=== PATIENT | male | born 1950 | race Asian ===

== ENCOUNTER 2017-07-30 14:21 | Inpatient (IN) | payer MEDICARE, MEDICAID ==
--- NOTE | 2017-07-30 15:20 | ED Physician Chart ---
ED Chief Complaint/HPI - Patient Information Date Seen:: 07/30/17 Time Seen:: 15:10 Chief Complaint:: dizziness History of Present Illness:: Patient had dizziness for 1 week. No further history is available. Allergies:: Allergies Allergy/AdvReac Type Severity Reaction Status Date / Time No Known Allergies Allergy Verified 07/30/17 14:44 Vitals:: Vital Signs - 8 hr 07/30/17 14:57 Temp 98.3 F HR 80 RR 16 BP 158/100 O2 Sat % 94 Historian:: EMS Review:: Nurse's Note Reviewed, Transfer documents Reviewed ED Past Medical History - Past Medical History Past Medical History: HTN, DM, Other (abdominal wall cellulitis; right hemiplegia) Family History: Other (not available) Social History: Care Facility, Other (unavailable) Surgical History: other (available) Psychiatricy History: Other (unavailable) Medication: Reviewed Family Medical History - Family Member Mother History Unknown: Yes Ethnicity: Non- Living Status: Unknown Hx Family Cancer: No Hx Family Coronary Artery Disease: (UNKNOWN) Hx Family Congestive Heart Failure: (UNKNOWN) Hx Family Hypertension: No Hx Family Stroke: No Hx Family Diabetes: (UNKNOWN) Hx Family Seizures: No Hx Family Dementia: (UNKNOWN) Hx Family AIDS: No Hx Family HIV: No Hx Family COPD: (UNKNOWN) Hx Family Hepatitis: No Hx Family Tuberculosis: (UNKNOWN) Daughter History Unknown: Yes Ethnicity: Non- Living Status: Unknown Hx Family Cancer: No Hx Family Coronary Artery Disease: No Hx Family Congestive Heart Failure: No Hx Family Hypertension: (UNKNOWN) Hx Family Stroke: (UNKNOWN) Hx Family Diabetes: No Hx Family Seizures: No Hx Family Dementia: No Hx Family AIDS: No Hx Family HIV: No Hx Family COPD: No Hx Family Hepatitis: (UNKNOWN) Hx Family Psychiatric Problems: No Hx Family Tuberculosis: (UNKNOWN) ED Physical Exam - Physical Examination General/Constitutional: No distress Other Gen/Cons comments:: Mildly chronically ill-appearing Head: Atraumatic Eyes: Lids, conjuctiva normal, PERRL Skin: No rash ENMT: External ears, nose nl, Nasal exam nl Other ENMT comments:: No upper teeth present Neck: No nuchal rigidity Respiratory: Nl effort/Exclusion, Clear to Auscultation Cardio Vascular: RRR GI: No tenderness/rebounding/guarding, No organomegaly, No hernia, Normal BS's, Nondistended Extremities: Normal digits & nails Other Neuro/Psych comments:: Right arm paralysis ED Labs/Radiology/EKG Results - Lab Results Results: Laboratory Results - last 24 hr 07/30/17 07/30/17 07/30/17 15:44 15:44 15:44 WBC 6.7 RBC 4.81 Hgb 14.4 Hct 43.9 MCV 91.3 MCH 30.0 MCHC Differential 32.8 RDW 13.8 Plt Count 291 MPV 7.7 Neutrophils % 63.3 Lymphocytes % 29.1 Monocytes % 5.2 Eosinophils % 2.0 Basophils % 0.4 Sodium 140 Potassium 4.0 Chloride 107 Carbon Dioxide 25.4 Anion Gap 11.6 BUN 12 Creatinine 0.9 Est GFR ( Amer) > 60.0 Est GFR (Non-Af Amer) > 60.0 BUN/Creatinine Ratio 13.3 Glucose 116 H Calcium 9.8 Troponin I 0.01 - Radiology Results Results: Chest x-ray showed calcification of the aortic arch and hiatal hernia. CT head showed atrophy and old left frontoparietal infarct - EKG Interpretations Rate & Rhythm: normal sinus rhythm with a rate of 75 [place]: normal Comments:: Q waves and slight ST elevation in leads III and aVF ED Septic Shock - . 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
[2017-07-30 15:50] LABS: % BASOPHILS 0.4 % (0.0-2.0); % LYMPHOCYTES 29.1 % (20.0-50.0); % MONOCYTES 5.2 % (2.0-10.0); % NEUTROPHILS 63.3 % (40.0-80.0); EOSINOPHILE ABSOLUTE 0.1 Th/cmm (0.1-0.4); HEMATOCRIT 43.9 % (41.0-60); HEMOGLOBIN 14.4 gm/dL (12-16); LYMPHOCYTE ABSOLUTE 1.9 Th/cmm (1.5-3.0); MEAN CELL VOLUME 91.3 fl (80-99); MEAN CORPUSCULAR HGB CONC 32.8 pg (28.0-36.0); MEAN PLATELET VOLUME 7.7 fl; MONOCYTE ABSOLUTE 0.3 Th/cmm (0.3-1.0); NEUTROPHILE ABSOLUTE 4.4 Th/cmm (1.8-8.0); PLATELET COUNT 291 Th/cmm (150-400); RED BLOOD COUNT 4.81 Mil/cmm (3.80-5.80); RED CELL DISTRIBUTION WIDTH 13.8 % (11.5-20.0); WHITE BLOOD COUNT 6.7 Th/cmm (4.8-10.8)
[2017-07-30 16:10] LABS: ANION GAP 11.6 (7.0-16.0); BUN - UREA NITROGEN 12 mg/dL (7-25); CALCIUM SERUM 9.8 mg/dL (8.6-10.3); CARBON DIOXIDE 25.4 mEq/L (21.0-31.0); CHLORIDE 107 mEq/L (98-107); CREATININE - SERUM 0.9 mg/dL (0.7-1.3); GFR AFRICAN-AMERICAN > 60.0 ml/min (>90); GFR NON AFRICAN-AMERICAN > 60.0 ml/min; GLUCOSE 116 mg/dL (70-105); SODIUM SERUM 140 mEq/L (136-145)
--- NOTE | 2017-07-31 08:18 | Diagnostic Imaging Report ---
CT scan of the brain without intravenous contrast HISTORY: Stroke, CVA Total DLP equals 832 CTDI equals 44.8 Axial sections were obtained from the base of the skull to the vertex. There is prominence/enlargement of the ventricular system size. Associated enlargement of cerebral sulci and subarachnoid cisterns. Findings are consistent with changes of generalized cerebral atrophy. No acute parenchymal abnormalities. No acute cerebral hemorrhage. Hypodensity is seen within the supratentorial white matter regions without mass effect. The findings may be associated with chronic small vessel ischemic disease. Somewhat more focal hypodensity noted in the left frontal parietal region with volume loss. Changes consistent with an old infarct. No extra-axial masses or abnormal fluid collections. Severe atherosclerotic vascular calcification noted in the region of the vertebral and basilar arteries at the base of the skull. IMPRESSION: 1. No acute abnormalities 2. Cerebral atrophy 3. Supratentorial white matter changes that may reflect chronic small vessel ischemic disease 4. Severe atherosclerotic vascular changes 5. Findings consistent with an old left frontoparietal infarct.
--- NOTE | 2017-07-31 08:22 | Diagnostic Imaging Report ---
CHEST X-RAY: AP view INDICATION: Pneumonia COMPARISON: 10/09/2015 FINDINGS: There is elevation of the right hemidiaphragm. No focal consolidation or effusions. Left basal subsegmental atelectatic changes are noted. Heart size borderline prominent. Atherosclerosis is noted. The osseous structures are intact. There is a 3 mm calcified granuloma the right midlung. IMPRESSION: Left basal subsegmental atelectasis versus scarring. No focal airspace consolidation identified. Atherosclerotic vascular disease.
[2017-07-31] MEDS ORDERED: Hydrocodone/APAP 5mg/325mg Tab PO PRN (11:57)
[2017-07-31] MEDS ORDERED: [UNRECOGNIZED DRUG - OTHER] PO SCH (12:00)
--- NOTE | 2017-07-31 13:29 | History & Physical ---
ADMIT DATE: 07/31/2017 PATIENT IDENTIFICATION: A 66-year-old male. CHIEF COMPLAINT: Dizziness and passing out. HISTORY OF PRESENT ILLNESS: A 66-year-old Spanish Portuguese male with history of CVA with right-sided weakness, diabetes mellitus, expressive aphasia, hypertension, hyperlipidemia, BPH, and DJD has been followed by myself at custodial, noted to have a lytic lesions on x-ray of his femur where the patient was seen by oncologist and seeing oncologist as an outpatient, noted by nursing staff that the patient was having dizziness and feeling of passing out. The patient's symptoms were continued to persist. The patient was advised to go to Emergency Room. The patient was seen by Emergency Room M.D. and subsequently admitted to the hospital for further treatment. PAST MEDICAL HISTORY: Remarkable for: 1. Diabetes mellitus. 2. Hypertension. 3. CVA involving the right side. 4. Degenerative joint disease. 5. Benign prostatic hypertrophy. 6. Gastroesophageal reflux disease. MEDICATIONS AT HOME: [facility] has been reviewed and reconciled appropriately. ALLERGIES: The patient is not allergic to any medication. SOCIAL HISTORY: The patient lives in a custodial. No smoking, alcohol or drug use. FAMILY MEDICAL HISTORY: Unavailable. REVIEW OF SYSTEMS: Unable to obtain meaningful history due to expressive aphasia. PHYSICAL EXAMINATION: GENERAL: The patient is alert, awake, lying in the bed without any acute distress. VITAL SIGNS: Temperature 97.7, pulse 80, respiratory rate is 18, blood pressure 168/90. HEENT: Normocephalic, atraumatic. Extraocular muscles are intact. Tongue was pink and coated. Poor dentition noted. NECK: Supple, no JVD, no hepatojugular reflex. No lymphadenopathy, thyromegaly or carotid bruit. HEART: Both heart sounds are regular. CHEST: Lung equal in expansion with no expiratory wheezing. ABDOMEN: Soft. No guarding, no rigidity. Bowel sounds were no palpable mass. EXTREMITIES: No edema, no cyanosis. NEUROLOGIC: Remarkable for right-sided weakness noted with spasticity. AVAILABLE DIAGNOSTIC DATA: Performed in the Emergency Room, which include white count of 6.7, hemoglobin 14.4, platelet count 291. Electrolytes are within normal limit. Glucose of 116. CT scan of the head was done which is negative for any new CVA, cerebral atrophy noted. There is severe atherosclerotic vascular changes noted. The patient does have an old left frontoparietal infarct. EKG, no ST-T wave changes representing acute ischemia. CLINICAL IMPRESSION: 1. Recurrent dizziness and lightheadedness going on for 1 week. The patient has previous history of CVA along with a history of diabetes and hypertension, needs to rule out for new embolic CVA, cannot rule out possibilities of other intracranial space occupying lesion. 2. Diabetes. 3. Hypertension. 4. Hyperlipidemia. 5. CVA with right-sided weakness. 6. Degenerative joint disease. 7. High risk for fall. 8. Dysphagia. 9. Benign prostatic hypertrophy. PLAN: 1. Admit this patient to telemetry unit. 2. MRI of the brain. 3. 2D echocardiogram. 4. Neurology consultation. 5. Diabetes management. 6. Appropriate home medicine reconciliation. 7. Hold the patient's Neurontin for now. 8. Pain management. 9. Diabetes management. 10. Follow science consultant recommendation. 11. Neuro check. 12. Care plan reviewed and discussed with staff. JOB# [id number]
[2017-07-31] MEDS ORDERED: LACTULOSE 10 GM PO SCH (17:00)
[2017-07-31] MEDS ORDERED: Non-Formulary Item 1 EA (Docusate Sodium 100 MG) PO SCH (17:00)
[2017-07-31] MEDS: Lactulose 10 Gm/15 mL 30mL UDC PO SCH (17:47)
[2017-08-01] MEDS ORDERED: OMEPRAZOLE PO SCH (09:00)
--- NOTE | 2017-08-01 09:16 | General Progress Note ---
Subjective - Review of Systems Subjective: Patient is seen and examined. Patient's daughter at bedside. Patient's denies chest pain, shortness, vomiting, headache.Patient is scheduled to have MRI of brain today. Objective - Results Result Diagrams: 07/30/17 15:44 07/30/17 15:44 Recent Labs: Laboratory Last Values WBC 6.7 Th/cmm (4.8-10.8) 07/30/17 15:44 RBC 4.81 Mil/cmm (3.80-5.80) 07/30/17 15:44 Hgb 14.4 gm/dL (12-16) 07/30/17 15:44 Hct 43.9 % (41.0-60) 07/30/17 15:44 MCV 91.3 fl (80-99) 07/30/17 15:44 MCH 30.0 pg (27.0-31.0) 07/30/17 15:44 MCHC Differential 32.8 pg (28.0-36.0) 07/30/17 15:44 RDW 13.8 % (11.5-20.0) 07/30/17 15:44 Plt Count 291 Th/cmm (150-400) 07/30/17 15:44 MPV 7.7 fl 07/30/17 15:44 Neutrophils % 63.3 % (40.0-80.0) 07/30/17 15:44 Lymphocytes % 29.1 % (20.0-50.0) 07/30/17 15:44 Monocytes % 5.2 % (2.0-10.0) 07/30/17 15:44 Eosinophils % 2.0 % (0.0-5.0) 07/30/17 15:44 Basophils % 0.4 % (0.0-2.0) 07/30/17 15:44 Sodium 140 mEq/L (136-145) 07/30/17 15:44 Potassium 4.0 mEq/L (3.5-5.1) 07/30/17 15:44 Chloride 107 mEq/L (98-107) 07/30/17 15:44 Carbon Dioxide 25.4 mEq/L (21.0-31.0) 07/30/17 15:44 Anion Gap 11.6 (7.0-16.0) 07/30/17 15:44 BUN 12 mg/dL (7-25) 07/30/17 15:44 Creatinine 0.9 mg/dL (0.7-1.3) 07/30/17 15:44 Est GFR ( Amer) > 60.0 ml/min (>90) 07/30/17 15:44 Est GFR (Non-Af Amer) > 60.0 ml/min 07/30/17 15:44 BUN/Creatinine Ratio 13.3 07/30/17 15:44 Glucose 116 mg/dL (70-105) H 07/30/17 15:44 Calcium 9.8 mg/dL (8.6-10.3) 07/30/17 15:44 Troponin I 0.01 ng/mL (0.01-0.05) 07/30/17 15:44 - Physical Exam Vitals and I&O: Vital Signs Temp 97.3 F 08/01/17 04:00 Pulse 90 08/01/17 04:00 Resp 18 08/01/17 04:00 BP 151/94 08/01/17 04:00 Pulse Ox 95 08/01/17 04:00 Intake & Output 07/31/17 08/01/17 08/01/17 18:59 06:59 18:59 Intake Total 200 Balance 200 Weight (lbs) 63.503 kg 73.028 kg Intake: Oral 200 Other: # Voids 3 # Bowel Movements 0 Active Medications: Current Medications Acetaminophen/Hydrocodone Bitart ([place] 5mg/325mg) 1 tab PO Q6H PRN PRN Reason: Pain Stop: 09/29/17 11:56 Atorvastatin Calcium (Lipitor) 10 mg PO DAILY [facility] PRN Reason: Protocol Stop: 09/30/17 08:59 Bisacodyl (Dulcolax 10 Mg Supp) 10 mg RC DAILY PRN PRN Reason: Constipation Stop: 09/29/17 11:56 Docusate Sodium (Colace) 100 mg PO BID [facility] Stop: 09/29/17 16:59 Last Admin: 07/31/17 17:48 Dose: 100 mg Labetalol HCl (Trandate) 300 mg PO Q12H [facility] Stop: 09/29/17 12:59 Last Admin: 08/01/17 03:55 Dose: Not Given Lactulose (Cephulac) 10 gm PO BID [facility] Stop: 09/29/17 16:59 Last Admin: 07/31/17 17:47 Dose: 10 gm Lisinopril (Zestril) 10 mg PO DAILY [facility] Stop: 09/30/17 08:59 Pantoprazole Sodium (Protonix) 40 mg PO DAILY [facility] Stop: 09/30/17 08:59 Pneumococcal Polyvalent Vaccine (Pneumovax) 0.5 ml IM .ONCE ONE Stop: 08/01/17 17:38 Senna (Senna) 8.6 mg PO BID [facility] Stop: 09/29/17 16:59 Last Admin: 07/31/17 17:48 Dose: 8.6 mg Terazosin HCl (Hytrin) 2 mg PO HS [facility] Stop: 09/29/17 20:59 Last Admin: 07/31/17 21:40 Dose: 2 mg General: Alert, Oriented x3, Cooperative, No acute distress HEENT: Atraumatic, PERRLA, EOMI Neck: Supple, JVD Cardiovascular: Regular rate, Normal S1, Normal S2 Lungs: Clear to auscultation Abdomen: Bowel sounds Extremities: Other (No edema cyanosis, clubbing) Neurological: Other (R sided weakness with expressive aphasia.) - Procedures Procedures: Procedures Procedure Code Date EXCISION OF STOMACH, OPEN APPROACH [id number] 10/09/15 REPAIR STOMACH-BOWEL FISTULA 85156 10/09/15 Assessment/Plan - Problem List Patient Problems: All Active Problems Abdominal pain (Acute) R10.[address] scan (Acute) R93.5 Right leg pain (Acute) M79.604 - Assessment Assessment: persistent dizziness and syncope. CVA with right sided weakness DM II Hypertension. Hyperlipidemia. DJD. Dysphagia. - Plan Plan: MRI of brain. Cardiac monitoring. General nursing care. Diabetes Management. Follow lab. Follow consultants recommendations. Continue current care Discussed with staff.
[2017-08-01] MEDS: Lactulose 10 Gm/15 mL 30mL UDC PO SCH ×2 (09:37→18:54)
[2017-08-01] MEDS: Pantoprazole 40 mg EC Tab PO SCH (09:37)
[2017-08-01] MEDS: Atorvastatin Calcium 10 MG TAB PO SCH (09:37)
[2017-08-01] MEDS ORDERED: VTE Chemical Prophylaxis Screen/Admission MC PRN (14:22)
[2017-08-01] MEDS ORDERED: Pneumococcal Vaccine 0.5 mL Vial IM ONE (17:37)
--- NOTE | 2017-08-01 20:00 | Cardiology ---
07/31/2017 ECHOCARDIOGRAM REPORT M-MODE ECHOCARDIOGRAM: Mitral valve, anterior leaflet of mitral valve shows normal excursion, EF velocity. Posterior leaflet of the mitral valve shows normal excursion. Left ventricular posterior wall shows increased thickness, normal excursion. Interventricular septum shows increased thickness, normal excursion, hypertrophy of the left ventricle, ejection fraction 55%. Left atrium normal. Aortic root shows normal dimension, normal excursion of aortic leaflets. CONCLUSION: Hypertrophy of the left ventricle, ejection fraction 55%. TWO-D ECHO: Long axis view showed normal sized left ventricle with hypertrophy of the left ventricle. Left atrium normal. Aortic root shows normal dimension, normal excursion of aortic leaflets. Short axis view of mitral valve normal. Short axis view of aortic valve normal. Apical four chamber view showed normal sized left ventricle with hypertrophy of the left ventricle. Left atrium normal. Right ventricular cavity and right atrium normal. No pericardial effusion. CONCLUSION: Hypertrophy of the left ventricle, ejection fraction 55%. Doppler study shows trace mitral regurgitation, prominent A wave consistent with poor compliance of left ventricle. [facility]# [id number]
[2017-08-02] MEDS: Pantoprazole 40 mg EC Tab PO SCH (08:26)
[2017-08-02] MEDS: Lactulose 10 Gm/15 mL 30mL UDC PO SCH ×2 (08:27→16:36)
[2017-08-02] MEDS: Atorvastatin Calcium 10 MG TAB PO SCH (08:27)
--- NOTE | 2017-08-02 09:40 | Diagnostic Imaging Report ---
MRI Brain without intravenous Contrast Indication: Syncope Comparison: Head CT performed at [facility] on 07/30/2017 Technique: Multiplanar T1, T2, FLAIR, GRE and diffusion weighted images of the brain were obtained without intravenous contrast.. Findings: Images of the brain obtained without contrast demonstrate no evidence of an acute hemorrhage. Focal area of what appears to be T2 shine through is seen along the right occipital lobe. Diffuse atrophy is noted. Diffuse white matter disease is noted with old periventricular infarcts. Focal infarcts of the right occipital lobe are also noted. The ventricles and basal cisterns are patent. No mass effect or midline shift. The bilateral cerebellopontine angles are patent. The vascular flow voids are preserved. Hemosiderin deposition in the left basal ganglion and bilateral cerebral hemispheres are noted which may be due to old punctate hemorrhages. There is mild mucosal thickening of the paranasal sinus. IMPRESSION: Focal T2 shine through is seen involving the right occipital lobe which is likely due to subacute or chronic infarct in this region. Diffuse white matter disease which is nonspecific and may be due to chronic microvessel ischemia. Old bilateral small periventricular infarcts are also noted. Diffuse atrophy. Few small areas of hemosiderin deposition seen along the left basal ganglia and bilateral cerebellar hemispheres which may have been due to old punctate hemorrhages.
--- NOTE | 2017-08-02 18:05 | General Progress Note ---
Subjective - Review of Systems Subjective: Patient is seen and examined. Patient's daughter at bedside. Patient's denies chest pain, shortness, vomiting, headache. MRI of brain report reviewed. Objective - Results Result Diagrams: 07/30/17 15:44 07/30/17 15:44 Recent Labs: Laboratory Last Values WBC 6.7 Th/cmm (4.8-10.8) 07/30/17 15:44 RBC 4.81 Mil/cmm (3.80-5.80) 07/30/17 15:44 Hgb 14.4 gm/dL (12-16) 07/30/17 15:44 Hct 43.9 % (41.0-60) 07/30/17 15:44 MCV 91.3 fl (80-99) 07/30/17 15:44 MCH 30.0 pg (27.0-31.0) 07/30/17 15:44 MCHC Differential 32.8 pg (28.0-36.0) 07/30/17 15:44 RDW 13.8 % (11.5-20.0) 07/30/17 15:44 Plt Count 291 Th/cmm (150-400) 07/30/17 15:44 MPV 7.7 fl 07/30/17 15:44 Neutrophils % 63.3 % (40.0-80.0) 07/30/17 15:44 Lymphocytes % 29.1 % (20.0-50.0) 07/30/17 15:44 Monocytes % 5.2 % (2.0-10.0) 07/30/17 15:44 Eosinophils % 2.0 % (0.0-5.0) 07/30/17 15:44 Basophils % 0.4 % (0.0-2.0) 07/30/17 15:44 Sodium 140 mEq/L (136-145) 07/30/17 15:44 Potassium 4.0 mEq/L (3.5-5.1) 07/30/17 15:44 Chloride 107 mEq/L (98-107) 07/30/17 15:44 Carbon Dioxide 25.4 mEq/L (21.0-31.0) 07/30/17 15:44 Anion Gap 11.6 (7.0-16.0) 07/30/17 15:44 BUN 12 mg/dL (7-25) 07/30/17 15:44 Creatinine 0.9 mg/dL (0.7-1.3) 07/30/17 15:44 Est GFR ( Amer) > 60.0 ml/min (>90) 07/30/17 15:44 Est GFR (Non-Af Amer) > 60.0 ml/min 07/30/17 15:44 BUN/Creatinine Ratio 13.3 07/30/17 15:44 Glucose 116 mg/dL (70-105) H 07/30/17 15:44 Calcium 9.8 mg/dL (8.6-10.3) 07/30/17 15:44 Troponin I 0.01 ng/mL (0.01-0.05) 07/30/17 15:44 - Physical Exam Vitals and I&O: Vital Signs Temp 98.0 F 08/02/17 15:00 Pulse 78 08/02/17 15:00 Resp 20 08/02/17 15:00 BP 160/94 08/02/17 15:00 Pulse Ox 99 08/02/17 15:00 Intake & Output 08/01/17 08/02/17 08/02/17 18:59 06:59 18:59 Intake Total 250 100 Balance 250 100 Weight (lbs) 73.028 kg 73.028 kg Intake: Oral 250 100 Other: # Voids 1 2 # Bowel Movements 0 0 Active Medications: Current Medications Acetaminophen/Hydrocodone Bitart ([place] 5mg/325mg) 1 tab PO Q6H PRN PRN Reason: Pain Stop: 09/29/17 11:56 Atorvastatin Calcium (Lipitor) 10 mg PO DAILY [facility] PRN Reason: Protocol Stop: 09/30/17 08:59 Last Admin: 08/02/17 08:27 Dose: 10 mg Bisacodyl (Dulcolax 10 Mg Supp) 10 mg RC DAILY PRN PRN Reason: Constipation Stop: 09/29/17 11:56 Docusate Sodium (Colace) 100 mg PO BID [facility] Stop: 09/29/17 16:59 Last Admin: 08/02/17 16:36 Dose: 100 mg Heparin Sodium (Porcine) (Heparin) 5,000 units SUBQ Q12H [facility] Stop: 09/30/17 20:59 Last Admin: 08/02/17 08:29 Dose: 5,000 units Labetalol HCl (Trandate) 300 mg PO Q12H [facility] Stop: 09/29/17 12:59 Last Admin: 08/02/17 13:09 Dose: 300 mg Lactulose (Cephulac) 10 gm PO BID [facility] Stop: 09/29/17 16:59 Last Admin: 08/02/17 16:36 Dose: 10 gm Lisinopril (Zestril) 10 mg PO DAILY [facility] Stop: 09/30/17 08:59 Last Admin: 08/02/17 08:26 Dose: 10 mg Miscellaneous ([employer] Prophylaxis Screen/ Admission) [facility] PRN PRN PRN Reason: PROTOCOL Stop: 09/30/17 14:21 Pantoprazole Sodium (Protonix) 40 mg PO DAILY [facility] Stop: 09/30/17 08:59 Last Admin: 08/02/17 08:26 Dose: 40 mg Senna (Senna) 8.6 mg PO BID [facility] Stop: 09/29/17 16:59 Last Admin: 08/02/17 16:36 Dose: 8.6 mg Terazosin HCl (Hytrin) 2 mg PO HS [facility] Stop: 09/29/17 20:59 Last Admin: 08/01/17 22:28 Dose: Not Given General: Alert, Oriented x3, Cooperative, No acute distress HEENT: Atraumatic, PERRLA, EOMI Neck: Supple, JVD Cardiovascular: Regular rate, Normal S1, Normal S2 Lungs: Clear to auscultation Abdomen: Bowel sounds Extremities: Other (No edema cyanosis, clubbing) Neurological: Other (R sided weakness with expressive aphasia.) - Procedures Procedures: Procedures Procedure Code Date EXCISION OF STOMACH, OPEN APPROACH [id number] 10/09/15 REPAIR STOMACH-BOWEL FISTULA 40040 10/09/15 Assessment/Plan - Problem List Patient Problems: All Active Problems Abdominal pain (Acute) R10.[address] scan (Acute) R93.5 Right leg pain (Acute) M79.604 - Assessment Assessment: persistent dizziness and syncope most likely due to new CVA. CVA with right sided weakness DM II Hypertension. Hyperlipidemia. DJD. Dysphagia. Fall risk - Plan Plan: Antiplatlet therapy. Transfer to Med Surg floor. Chronic disease management. Symptoms control. General nursing care. Diabetes Management. Follow lab. Follow consultants recommendations. Continue current care Discussed with staff.
--- NOTE | 2017-08-02 23:38 | Consultation ---
DATE OF CONSULTATION: 08/02/2017 NEUROLOGY CONSULT HISTORY OF PRESENT ILLNESS: The patient is a 66-year-old patient in bed. History is mainly from review of records and talking to the nursing staff. The patient is not able to give me much information. He seems to have difficulty which speech. He is going talks few words, but not much more. Staff told that the patient is having difficulty with some dizziness that he feels lightheaded. He has not passed out while here. PAST MEDICAL HISTORY: Stroke with right hemiplegia. The patient essentially has very little movement in the right arm and leg. Also, weakness of left leg, difficulty walking. The patient with, 1. Hypertension. 2. Diabetes. 3. GI reflux. Apparently, the patient has had workup done with abnormal x-rays of his femur. He is seeing an oncologist. MEDICATIONS: As per reconciliation. Here, the patient is on hydrocodone, atorvastatin, on labetalol, lisinopril, Protonix, terazosin. REVIEW OF SYSTEMS: Very limited. The patient is awake but no speech. He follows instructions with a combination of gesture and speech. ALLERGIES: None known. PHYSICAL EXAMINATION: VITAL SIGNS: 98.4, blood pressure 130/76, pulse is 74. NECK: Supple. No neck bruits. HEART: Sounds S1, S2. LUNGS: Clear. ABDOMEN: Soft. NEUROLOGIC: The patient lying in bed, awake. The patient, combination of dysarthria and aphasia. Follows some instruction with gestures. CRANIAL: Pupils reactive. No definite nystagmus. He will look to the right and left. No really marked facial droop, may be slight on the right. MOTOR: Right arm increase tone and spasticity, will just falls down to the bed when I lifted out, right leg also really spasticity, no movement. Left side actually he does move the left arm okay, but weakness the right is greater than on the left leg. Reflex about 1+. Upper extremity, knees are about 2+ to -3. Ankles are difficult to get. INVESTIGATIONS: The patient's MRI brain, right occipital stroke. Also, abnormalities in the cerebellar bilateral and left basal ganglia, question of possible old stroke or possible small hemorrhages. LABS: WBC 6.7, hemoglobin 14.4. Sodium 140, potassium 4.0. Troponin normal. IMPRESSION: 1. Old stroke with right hemiplegia. 2. Ataxia. 3. Dizziness, probably multifactorial, combination of previous stroke in the posterior circulation. 4. Paraplegia. 5. Diabetes. 6. Hypertension. PLAN: At the moment carotid Doppler study. Continue present treatment, physical therapy at rehab. JOB# [id number]
[2017-08-03] MEDS: Lactulose 10 Gm/15 mL 30mL UDC PO SCH ×3 (09:39→17:13)
[2017-08-03] MEDS: Pantoprazole 40 mg EC Tab PO SCH (09:39)
[2017-08-03] MEDS: Atorvastatin Calcium 10 MG TAB PO SCH (09:39)
--- NOTE | 2017-08-03 14:20 | General Progress Note ---
Subjective - Review of Systems Subjective: Patient is seen and examined. Patient's denies chest pain, shortness, vomiting, headache. Objective - Results Result Diagrams: 07/30/17 15:44 07/30/17 15:44 Recent Labs: Laboratory Last Values WBC 6.7 Th/cmm (4.8-10.8) 07/30/17 15:44 RBC 4.81 Mil/cmm (3.80-5.80) 07/30/17 15:44 Hgb 14.4 gm/dL (12-16) 07/30/17 15:44 Hct 43.9 % (41.0-60) 07/30/17 15:44 MCV 91.3 fl (80-99) 07/30/17 15:44 MCH 30.0 pg (27.0-31.0) 07/30/17 15:44 MCHC Differential 32.8 pg (28.0-36.0) 07/30/17 15:44 RDW 13.8 % (11.5-20.0) 07/30/17 15:44 Plt Count 291 Th/cmm (150-400) 07/30/17 15:44 MPV 7.7 fl 07/30/17 15:44 Neutrophils % 63.3 % (40.0-80.0) 07/30/17 15:44 Lymphocytes % 29.1 % (20.0-50.0) 07/30/17 15:44 Monocytes % 5.2 % (2.0-10.0) 07/30/17 15:44 Eosinophils % 2.0 % (0.0-5.0) 07/30/17 15:44 Basophils % 0.4 % (0.0-2.0) 07/30/17 15:44 Sodium 140 mEq/L (136-145) 07/30/17 15:44 Potassium 4.0 mEq/L (3.5-5.1) 07/30/17 15:44 Chloride 107 mEq/L (98-107) 07/30/17 15:44 Carbon Dioxide 25.4 mEq/L (21.0-31.0) 07/30/17 15:44 Anion Gap 11.6 (7.0-16.0) 07/30/17 15:44 BUN 12 mg/dL (7-25) 07/30/17 15:44 Creatinine 0.9 mg/dL (0.7-1.3) 07/30/17 15:44 Est GFR ( Amer) > 60.0 ml/min (>90) 07/30/17 15:44 Est GFR (Non-Af Amer) > 60.0 ml/min 07/30/17 15:44 BUN/Creatinine Ratio 13.3 07/30/17 15:44 Glucose 116 mg/dL (70-105) H 07/30/17 15:44 Calcium 9.8 mg/dL (8.6-10.3) 07/30/17 15:44 Troponin I 0.01 ng/mL (0.01-0.05) 07/30/17 15:44 - Physical Exam Vitals and I&O: Vital Signs Temp 98 F 08/03/17 11:00 Pulse 94 08/03/17 12:18 Resp 19 08/03/17 11:00 BP 157/116 08/03/17 12:18 Pulse Ox 96 08/03/17 11:00 Intake & Output 08/02/17 08/03/17 08/03/17 18:59 06:59 18:59 Intake Total 100 25 Balance 100 25 Weight (lbs) 73.028 kg 73.028 kg Intake: Oral 100 25 Other: # Voids 2 3 # Bowel Movements 0 0 Active Medications: Current Medications Acetaminophen/Hydrocodone Bitart ([place] 5mg/325mg) 1 tab PO Q6H PRN PRN Reason: Pain Stop: 09/29/17 11:56 Atorvastatin Calcium (Lipitor) 10 mg PO DAILY [facility] PRN Reason: Protocol Stop: 09/30/17 08:59 Last Admin: 08/03/17 09:39 Dose: 10 mg Bisacodyl (Dulcolax 10 Mg Supp) 10 mg RC DAILY PRN PRN Reason: Constipation Stop: 09/29/17 11:56 Docusate Sodium (Colace) 100 mg PO BID [facility] Stop: 09/29/17 16:59 Last Admin: 08/03/17 09:39 Dose: 100 mg Heparin Sodium (Porcine) (Heparin) 5,000 units SUBQ Q12H [facility] Stop: 09/30/17 20:59 Last Admin: 08/03/17 09:41 Dose: 5,000 units Labetalol HCl (Trandate) 300 mg PO Q12H [facility] Stop: 09/29/17 12:59 Last Admin: 08/03/17 12:18 Dose: 300 mg Lactulose (Cephulac) 10 gm PO BID [facility] Stop: 09/29/17 16:59 Last Admin: 08/03/17 09:39 Dose: 10 gm Lisinopril (Zestril) 10 mg PO DAILY [facility] Stop: 09/30/17 08:59 Last Admin: 08/03/17 09:39 Dose: 10 mg Miscellaneous (Vte Chemical Prophylaxis Screen/ Admission) 1 [facility] PRN PRN PRN Reason: PROTOCOL Stop: 09/30/17 14:21 Pantoprazole Sodium (Protonix) 40 mg PO DAILY [facility] Stop: 09/30/17 08:59 Last Admin: 08/03/17 09:39 Dose: 40 mg Senna (Senna) 8.6 mg PO BID [facility] Stop: 09/29/17 16:59 Last Admin: 08/03/17 09:40 Dose: 8.6 mg Terazosin HCl (Hytrin) 2 mg PO HS [facility] Stop: 09/29/17 20:59 Last Admin: 08/02/17 22:30 Dose: Not Given General: Alert, Oriented x3, Cooperative, No acute distress HEENT: Atraumatic, PERRLA, EOMI Neck: Supple, JVD Cardiovascular: Regular rate, Normal S1, Normal S2 Lungs: Clear to auscultation Abdomen: Bowel sounds Extremities: Other (No edema cyanosis, clubbing) Neurological: Other (R sided weakness with expressive aphasia.) - Procedures Procedures: Procedures Procedure Code Date EXCISION OF STOMACH, OPEN APPROACH [id number] 10/09/15 REPAIR STOMACH-BOWEL FISTULA 22024 10/09/15 Assessment/Plan - Problem List Patient Problems: All Active Problems Abdominal pain (Acute) R10.[address] scan (Acute) R93.5 Right leg pain (Acute) M79.604 - Assessment Assessment: persistent dizziness and syncope most likely due to new CVA. CVA with right sided weakness DM II Hypertension. Hyperlipidemia. DJD. Dysphagia. Fall risk - Plan Plan: Discharge back to [facility]. MED reconciled. Discussed with staff.
[2017-08-04] MEDS: Lactulose 10 Gm/15 mL 30mL UDC PO SCH ×2 (09:02→09:18)
[2017-08-04] MEDS: Atorvastatin Calcium 10 MG TAB PO SCH ×2 (09:05→09:19)
[2017-08-04] MEDS: Pantoprazole 40 mg EC Tab PO SCH ×2 (09:05→09:20)
--- NOTE | 2017-08-04 09:30 | General Progress Note ---
Subjective - Review of Systems Subjective: Patient is seen and examined. Patient's denies chest pain, shortness, vomiting, headache. Patient was not discharged yesterday. Objective - Results Result Diagrams: 07/30/17 15:44 07/30/17 15:44 Recent Labs: Laboratory Last Values WBC 6.7 Th/cmm (4.8-10.8) 07/30/17 15:44 RBC 4.81 Mil/cmm (3.80-5.80) 07/30/17 15:44 Hgb 14.4 gm/dL (12-16) 07/30/17 15:44 Hct 43.9 % (41.0-60) 07/30/17 15:44 MCV 91.3 fl (80-99) 07/30/17 15:44 MCH 30.0 pg (27.0-31.0) 07/30/17 15:44 MCHC Differential 32.8 pg (28.0-36.0) 07/30/17 15:44 RDW 13.8 % (11.5-20.0) 07/30/17 15:44 Plt Count 291 Th/cmm (150-400) 07/30/17 15:44 MPV 7.7 fl 07/30/17 15:44 Neutrophils % 63.3 % (40.0-80.0) 07/30/17 15:44 Lymphocytes % 29.1 % (20.0-50.0) 07/30/17 15:44 Monocytes % 5.2 % (2.0-10.0) 07/30/17 15:44 Eosinophils % 2.0 % (0.0-5.0) 07/30/17 15:44 Basophils % 0.4 % (0.0-2.0) 07/30/17 15:44 Sodium 140 mEq/L (136-145) 07/30/17 15:44 Potassium 4.0 mEq/L (3.5-5.1) 07/30/17 15:44 Chloride 107 mEq/L (98-107) 07/30/17 15:44 Carbon Dioxide 25.4 mEq/L (21.0-31.0) 07/30/17 15:44 Anion Gap 11.6 (7.0-16.0) 07/30/17 15:44 BUN 12 mg/dL (7-25) 07/30/17 15:44 Creatinine 0.9 mg/dL (0.7-1.3) 07/30/17 15:44 Est GFR ( Amer) > 60.0 ml/min (>90) 07/30/17 15:44 Est GFR (Non-Af Amer) > 60.0 ml/min 07/30/17 15:44 BUN/Creatinine Ratio 13.3 07/30/17 15:44 Glucose 116 mg/dL (70-105) H 07/30/17 15:44 Calcium 9.8 mg/dL (8.6-10.3) 07/30/17 15:44 Troponin I 0.01 ng/mL (0.01-0.05) 07/30/17 15:44 - Physical Exam Vitals and I&O: Vital Signs Temp 97.6 F 08/04/17 04:00 Pulse 80 08/04/17 04:00 Resp 18 08/04/17 04:00 BP 155/104 08/04/17 04:00 Pulse Ox 95 08/04/17 04:00 Intake & Output 08/03/17 08/04/17 08/04/17 18:59 06:59 18:59 Intake Total 375 50 Balance 375 50 Weight (lbs) 72.575 kg 72.575 kg Intake: Oral 375 50 Other: # Voids 2 1 # Bowel Movements 0 Active Medications: Current Medications Acetaminophen/Hydrocodone Bitart ([place] 5mg/325mg) 1 tab PO Q6H PRN PRN Reason: Pain Stop: 09/29/17 11:56 Atorvastatin Calcium (Lipitor) 10 mg PO DAILY [facility] PRN Reason: Protocol Stop: 09/30/17 08:59 Last Admin: 08/04/17 09:19 Dose: Not Given Bisacodyl (Dulcolax 10 Mg Supp) 10 mg RC DAILY PRN PRN Reason: Constipation Stop: 09/29/17 11:56 Docusate Sodium (Colace) 100 mg PO BID [facility] Stop: 09/29/17 16:59 Last Admin: 08/04/17 09:05 Dose: Not Given Heparin Sodium (Porcine) (Heparin) 5,000 units SUBQ Q12H [facility] Stop: 09/30/17 20:59 Last Admin: 08/04/17 09:19 Dose: Not Given Labetalol HCl (Trandate) 300 mg PO Q12H [facility] Stop: 09/29/17 12:59 Last Admin: 08/04/17 01:03 Dose: Not Given Lactulose (Cephulac) 10 gm PO BID [facility] Stop: 09/29/17 16:59 Last Admin: 08/04/17 09:18 Dose: Not Given Lisinopril (Zestril) 10 mg PO DAILY [facility] Stop: 09/30/17 08:59 Last Admin: 08/04/17 09:19 Dose: Not Given Miscellaneous (Vte Chemical Prophylaxis Screen/ Admission) 1 [facility] PRN PRN PRN Reason: PROTOCOL Stop: 09/30/17 14:21 Pantoprazole Sodium (Protonix) 40 mg PO DAILY [facility] Stop: 09/30/17 08:59 Last Admin: 08/04/17 09:20 Dose: Not Given Senna (Senna) 8.6 mg PO BID [facility] Stop: 09/29/17 16:59 Last Admin: 08/04/17 09:20 Dose: Not Given Terazosin HCl (Hytrin) 2 mg PO HS [facility] Stop: 09/29/17 20:59 Last Admin: 08/03/17 21:42 Dose: Not Given General: Alert, Oriented x3, Cooperative, No acute distress HEENT: Atraumatic, PERRLA, EOMI Neck: Supple, JVD Cardiovascular: Regular rate, Normal S1, Normal S2 Lungs: Clear to auscultation Abdomen: Bowel sounds Extremities: Other (No edema cyanosis, clubbing) Neurological: Other (R sided weakness with expressive aphasia.) - Procedures Procedures: Procedures Procedure Code Date EXCISION OF STOMACH, OPEN APPROACH [id number] 10/09/15 REPAIR STOMACH-BOWEL FISTULA 29643 10/09/15 Assessment/Plan - Problem List Patient Problems: All Active Problems Abdominal pain (Acute) R10.[address] scan (Acute) R93.5 Right leg pain (Acute) M79.604 - Assessment Assessment: persistent dizziness and syncope most likely due to new CVA. CVA with right sided weakness DM II Hypertension. Hyperlipidemia. DJD. Dysphagia. Fall risk - Plan Plan: Discharge back to [facility] today. MED reconciled. Discussed with staff.
--- NOTE | 2017-08-04 09:34 | Discharge Summary ---
General Discharge Summary - Discharge Summary Date of Admission: 07/31/17 Admitting Diagnosis: Persisteant dizziness and syncope. Patient Problems: All Active Problems Abdominal pain (Acute) R10.[address] scan (Acute) R93.5 Right leg pain (Acute) M79.604 Discharge Date: 08/04/17 Discharge Diagnosis: persistent dizziness and syncope most likely due to new CVA. CVA with right sided weakness. DM II. Hypertension. Hyperlipidemia. DJD. Dysphagia. Fall risk Hospital Course: Patient was admitted to Tele unit. patient was seen by neuro and myself. All his meds were reconciliated. Work up for his illness was done. It was concluded his symptoms related to new cva. patient is placed on plavix and aspirin. General nursing care was provided. Chronic disease were managed.Once satble patient is discharged back to [facility]. Condition at Discharge: Stable Disposition: Discharge/Transfered to SNF Home Medications: Home Medication Medication Instructions Recorded Type Acetaminophen [Tylenol] 650 mg PO Q4H PRN 04/21/15 History Docusate Sodium [Colace] 100 mg PO BID 04/21/15 History Gabapentin [Neurontin*] 300 mg PO TID 04/21/15 History Bisacodyl [Dulcolax 10 Mg Supp] 10 mg RC DAILY PRN 10/09/15 History Insulin Human Regular [humuLIN R] 0 units SUBQ BID 10/09/15 History Lactulose [Constulose] 10 gm PO BID 10/09/15 History Lisinopril [Zestril] 10 mg PO DAILY 10/09/15 History Sennosides [Joi-Odin] 8.6 mg PO BID 10/09/15 History Terazosin HCl [Hytrin*] 2 mg PO HS 10/09/15 History Hydrocodone/APAP 5mg/325mg [[place] 1 tab PO Q6H PRN 10/31/15 History 5mg/325mg] Tamsulosin [Flomax] 0.4 mg PO HS 10/31/15 History cloNIDine HCl [Catapres] 0.1 mg PO Q6H PRN 10/31/15 History Atorvastatin Calcium [Lipitor] 10 mg PO DAILY 07/30/17 History Clopidogrel Bisulfate [Plavix] 75 mg PO DAILY #30 tab 08/03/17 Rx Docusate Sodium [Colace] 100 mg PO BID cap 08/03/17 Rx Labetalol [Trandate] 300 mg PO Q12H tab 08/03/17 Rx Lactulose [Cephulac] 10 gm PO BID [facility] 08/03/17 Rx Pantoprazole [Protonix] 40 mg PO DAILY ect 08/03/17 Rx cloNIDine HCl [Catapres] 0.1 mg PO Q6H PRN tab 08/03/17 Rx Inpatient Medications: Current Medications Acetaminophen/Hydrocodone Bitart ([place] 5mg/325mg) 1 tab PO Q6H PRN PRN Reason: Pain Stop: 09/29/17 11:56 Atorvastatin Calcium (Lipitor) 10 mg PO DAILY [facility] PRN Reason: Protocol Stop: 09/30/17 08:59 Last Admin: 08/04/17 09:19 Dose: Not Given Bisacodyl (Dulcolax 10 Mg Supp) 10 mg RC DAILY PRN PRN Reason: Constipation Stop: 09/29/17 11:56 Docusate Sodium (Colace) 100 mg PO BID [facility] Stop: 09/29/17 16:59 Last Admin: 08/04/17 09:05 Dose: Not Given Heparin Sodium (Porcine) (Heparin) 5,000 units SUBQ Q12H [facility] Stop: 09/30/17 20:59 Last Admin: 08/04/17 09:19 Dose: Not Given Labetalol HCl (Trandate) 300 mg PO Q12H [facility] Stop: 09/29/17 12:59 Last Admin: 08/04/17 01:03 Dose: Not Given Lactulose (Cephulac) 10 gm PO BID [facility] Stop: 09/29/17 16:59 Last Admin: 08/04/17 09:18 Dose: Not Given Lisinopril (Zestril) 10 mg PO DAILY [facility] Stop: 09/30/17 08:59 Last Admin: 08/04/17 09:19 Dose: Not Given Miscellaneous (Vte Chemical Prophylaxis Screen/ Admission) 1 [facility] PRN PRN PRN Reason: PROTOCOL Stop: 09/30/17 14:21 Pantoprazole Sodium (Protonix) 40 mg PO DAILY [facility] Stop: 09/30/17 08:59 Last Admin: 08/04/17 09:20 Dose: Not Given Senna (Senna) 8.6 mg PO BID [facility] Stop: 09/29/17 16:59 Last Admin: 08/04/17 09:20 Dose: Not Given Terazosin HCl (Hytrin) 2 mg PO HS [facility] Stop: 09/29/17 20:59 Last Admin: 08/03/17 21:42 Dose: Not Given Prescriptions: Clopidogrel Bisulfate [Plavix] 75 mg PO DAILY #30 tab Consults and Follow-Up: Hayder Guerra [Primary Care Provider] -
== END 2017-08-04 12:39 | disposition home or self-care (01) | DRG 65 ==
LOC: ER 14:21 → TELE 18:19 → MSI 08-03 16:41
PROVIDERS: ADMIT Internal Medicine; ATTEND Internal Medicine
DX: I63.9 Cerebral infarction, unspecified (principal); G82.20 Paraplegia, unspecified; F03.90 Unspecified dementia, unspecified severity, without behavioral disturbance, psychotic disturbance, mood disturbance, and anxiety; I69.351 Hemiplegia and hemiparesis following cerebral infarction affecting right dominant side; E11.9 Type 2 diabetes mellitus without complications; I10 Essential (primary) hypertension; E78.5 Hyperlipidemia, unspecified; M19.90 Unspecified osteoarthritis, unspecified site; R13.10 Dysphagia, unspecified; N40.0 Benign prostatic hyperplasia without lower urinary tract symptoms; R47.01 Aphasia; Z66 Do not resuscitate; R27.0 Ataxia, unspecified; Z79.4 Long term (current) use of insulin; Z91.81 History of falling
CPT/HCPCS: 36415-UA; 70450-TC; 71010-TC; 80048-TC; 84484-TC; 85025-TC; 93005; 93307-TC; J1644; Z7610; Z7610-TC